=== PATIENT | female | born 1945 | race Caucasian/White ===

== ENCOUNTER 2025-05-25 16:23 | Emergency (ER) | payer MEDICARE, MEDICAID ==
[~2025-05-25] VITALS: Ht 167.6 cm; Wt 55.0 kg
[2025-05-25 16:33] VITALS: O2SAT 99
[2025-05-25 17:13] VITALS: TEMP 36.7; O2SAT 96
[2025-05-25] MEDS: SODIUM CHLORIDE 0.9% 1,000 ML IV ONE (17:18)
[2025-05-25 17:20] VITALS: BP 143/75; PULSE 83; RESP 10; TEMP 98.06
[2025-05-25 17:20] LABS: BASOPHILS % 0.6 % (0.0-2.0); EOSINOPHILS % 0.9 % (0.0-5.0); HEMATOCRIT. 36.9 % (36.0-48.0); HEMOGLOBIN. 12.4 g/dL (12.0-16.0); LYMPHOCYTES % 24.4 % (20.0-50.0); MEAN PLATELET VOLUME 8.6 fl (7.4-10.4); MONOCYTES % 13.7 % (2.0-8.0); NEUTROPHILS % 60.4 % (40.0-76.0); PLATELET 292 x1000/uL (130-400); RED BLOOD CELL COUNT 4.09 mill/uL (4.2-5.4); RED CELL DISTRIBUTION WIDTH 15.7 % (11.6-14.6)
[2025-05-25 17:34] LABS: CREATININE 0.7 mg/dL (0.6-1.0)
[2025-05-25 17:35] LABS: ETHANOL BLOOD < 10 mg/dL (<10); UREA NITROGEN BLOOD 13 mg/dL (9-23)
[2025-05-25 17:36] LABS: ASPARTATE AMINOTRANSFERASE 18 IU/L (<34)
[2025-05-25 17:37] LABS: BILIRUBIN DIRECT 0.2 mg/dL (<=3.0); BILIRUBIN TOTAL 0.5 mg/dL (0.1-1.0); PROTEIN TOTAL 6.6 g/dL (6.0-8.3); TROPONIN I HIGH SENSITIVITY 4 ng/L (3.0-34)
== END 2025-05-25 18:18 | disposition left against medical advice (07) ==
LOC: ER 16:23
DX: R07.89 Other chest pain (principal); R79.89 Other specified abnormal findings of blood chemistry; F41.9 Anxiety disorder, unspecified; Z53.21 Procedure and treatment not carried out due to patient leaving prior to being seen by health care provider
CPT/HCPCS: 80076; 80048; 80320; 82550; 83880; 83735; 85025; 85379; 84484; 36415; 71045; 93005; 96360; 99285; J7030; A4606; G0480